=== PATIENT | male | born 1960 | race Caucasian/White ===

== ENCOUNTER 2020-03-10 09:24 | Observation (INO) | payer OTHER ==
[2020-03-10] VITALS (18 sets, daily range): BP systolic 121–150; BP diastolic 58–919
[~2020-03-10] VITALS: Ht 177.8 cm; Wt 72.6 kg
--- NOTE | ~2020-03-10 | H ---
[address] [address] HISTORY AND PHYSICAL Name: CYNTHIA PARTIDA Room: [address] Jm M.RYadira#: [id number] Admission: 03/10/20 Attend Phys: Gilbert Horton MD, F Discharge: 03/11/20 Date of : 62 Report #: [id number] THIS REPORT FOR: //name// cc: Keyonna Faulkner MD, Elizabeth MD ~ Please refer to the History and Physical performed in the physician's office. By: [facility] Staff [facility] /[facility]
[~2020-03-10 09:24] MED LIST: ASA81BEC PO; FISH OIL 1,0001 EAC9 PO; LIPITOR40 MG PO; OMEPRAZOLE 20 M20 M1 PO; SUPER THERAVIT1 EACH PO
[2020-03-10 10:05] LABS: HEMATOCRIT 43.3 % (42.0-52.0); HEMOGLOBIN 15.7 gm/dL (14.0-18.0); MCH 32.4 pg (26.0-34.0); MCHC 36.3 g/dL (28.0-37.0); MCV 89.1 fL (80.0-100.0); MPV 8.6 fl. (7.2-11.1); RBC 4.86 mil/uL (4.50-6.00); RDW-CV 13.8 % (10.5-14.5); WBC 7.4 thou/uL (4.0-11.0)
[2020-03-10 10:38] LABS: ANION GAP 8 mmol/L (7-16); BUN 16 mg/dL (7-18); CALCIUM 8.2 mg/dL (8.5-10.1); CHLORIDE 106 mmol/L (98-107); CO2 28 mmol/L (21-32); GLUCOSE 97 mg/dL (70-99); POTASSIUM 4.2 mmol/L (3.5-5.1); SODIUM 142 mmol/L (136-145)
[2020-03-10 10:43] LABS: ALBUMIN 3.7 g/dL (3.4-5.0); ALKALINE PHOSPHATASE 40 U/L (46-116); CHOLESTEROL 104 mg/dL (<200); HDL CHOLESTEROL 52 mg/dL (>40); LDL CHOLESTEROL 34 mg/dL (<100); SGOT 33 U/L (15-37); SGPT 58 U/L (30-65); TOTAL BILIRUBIN 0.6 mg/dL (<0.1-1.0); TOTAL PROTEIN 6.7 g/dL (6.4-8.2); TRIGLYCERIDE 93 mg/dL (<150); VLDL 19 mg/dL (<40)
[2020-03-10 10:44] LABS: SERUM ASSESSMENT Clear
[2020-03-10 10:52] LABS: APTT 23.3 Seconds (25.0-31.3); PROTIME 10.7 Seconds (9.20-11.50)
--- NOTE | 2020-03-10 17:40 | EKG ---
[place] [address] ELECTROCARDIOGRAM REPORT Name: CYNTHIA PARTIDA Room: [address]R.#: [id number] Admission: 03/10/20 Attend Phys: Gilbert Horton MD Discharge: Date of : 62 Date of Service: 03/10/20 1031 Report #: [id number] THIS REPORT FOR: //name// [facility] Test Date: 2020-03-10 Test Time: 10:31:36 Pat Name: CYNTHIA PARTIDA Department: Room: [facility] Gender: M Gate Supervisor: : 1960 Requested By: Gilbert Horton Order Number: [id number] David MD: Gilbert Horton Measurements Intervals [place] Rate: 59 P: 257 TX: 120 QRS: 59 QRSD: 86 T: 54 QT: 393 QTc: 390 Interpretive Statements Ectopic atrial rhythm Borderline low voltage, extremity leads Borderline ST elevation, early repolarization No previous ECG available for comparison Electronically Signed On 03-10-2020 17:39:59 CDT by Gilbert Horton [email or web address] <ELECTRONICALLY SIGNED> By: Gilbert Horton MD, [facility] 03/10/20 1739 1031 1031 Gilbert Horton MD, [facility] /EPI
--- NOTE | 2020-03-10 17:43 | EKG ---
[place] [address] ELECTROCARDIOGRAM REPORT Name: CYNTHIA PARTIDA Room: [address]R.#: [id number] Admission: 03/10/20 Attend Phys: Gilbert Horton MD Discharge: Date of : 62 Date of Service: 03/10/20 1603 Report #: [id number] THIS REPORT FOR: //name// [facility] Test Date: 2020-03-10 Test Time: 16:03:15 Pat Name: CYNTHIA PARTIDA Department: Room: [facility] Gender: M Maintenance Fitter: TPARKS : 1960 Requested By: Gilbert Horton Order Number: [id number] David MD: Gilbert Horton Measurements Intervals [place] Rate: 66 P: 36 UT: 168 QRS: 61 QRSD: 91 T: 55 QT: 387 QTc: 406 Interpretive Statements Sinus rhythm Baseline wander in lead(s) V4 Compared to ECG 03/10/2020 10:31:36 Ectopic atrial rhythm no longer present Electronically Signed On 03-10-2020 17:43:42 CDT by Gilbert Horton [email or web address] <ELECTRONICALLY SIGNED> By: Gilbert Horton MD, [facility] 03/10/20 1743 1603 1603 Gilbert Horton MD, [facility] /EPI
--- NOTE | 2020-03-10 19:14 | CARD ---
[address] [address] CARDIAC CATH REPORT Name: CYNTHIA PARTIDA Leonard Room: [address] M.RYadira#: [id number] Admission: 03/10/20 Attend Phys: Gilbert Horton MD, F Discharge: Date of : 62 Report #: [id number] THIS REPORT FOR: //name// cc: Keyonna Faulkner MD, Elizabeth MD ~ APPROVED REPORT Study performed: 03/10/2020 10:42:34 Patient Details Patient Status: Out-Patient Room #: The patient is a 59 year-old male Event Personnel Gilbert Horton Neonatal Doctor, Shalini Salter RN Volleyball Assembler, Saman Arguello INDUSTRIAL TRUCK MECHANIC Monitor, Alanna Billy RTR Scrub Procedures Performed Left Heart Cath w/or w/o Coronaries [id number] [facility] Place w/wo Plasty Single CIRC [id number] Indication Positive stress test, Chest pain Risk Factors Hypercholesterolemia, Coronary Artery Disease Admission/Lab Medications/Medications given during procedure Glycoprotein IllbIlla Inhibitors, Heparin Unfract. Procedure Narrative The patient was brought electively to the Cardiac Catheterization Laboratory and was prepped and draped in a sterile manner. The right wrist was infiltrated with 2% Lidocaine subcutaneous anesthesia. A Slender Glidesheath sheath was inserted into the RRA. Coronary angiography was performed using coronary diagnostic catheters. The right coronary system was accessed and visualized with a AR1 MOD catheter. The left coronary system was accessed and visualized with a JL3.5 catheter. The left ventricle was accessed and visualized with a Pig Tail catheter. Left ventriculogram was performed in PEDRAZA projection. Closure device was deployed with a 6 Fr vascband. The patient tolerated the procedure well and there were no complications associated with the procedure. [place] [address] CARDIAC CATH REPORT Name: AMYMARYAMCYNTHIA Leonard Room: [address] M.R.#: [id number] Admission: 03/10/20 Attend Phys: Gilbert Horton MD, F Discharge: Date of : 62 Report #: [id number] Intraoperative Conscious Sedation Sedation start time: 1346 Case end Time: 1435 Fluoro Time: 7.5 minutes Dose: DAP 94795 cGycm2 1031 mGy Contrast Type and Amount: Visipaque 170 ml Coronary Angiography The patient's coronary anatomy is right dominant. [place] Artery Percent Stenosis Left Main: 0 % Prox LAD: 0 % Mid/Distal LAD: 40 % Circumflex: 70 % RCA: 0 % Ramus: % Left Ventriculography The left ventricle is normal in size with normal contractility. The left ventricular ejection fraction is estimated to be 60-65%. Left ventricular wall motion abnormalities are not present. There is no mitral insufficiency. Hemodynamics The aortic pressure is 135/72 mmHg with a mean of 44 mmHg. The left ventricular pressure is 141/10 mmHg with a mean of mmHg. The left ventricular end diastolic pressure is 14 mmHg. There was no gradient across the aortic valve upon pullback. Pullback from the left ventricle to the aorta revealed no gradient across the aortic valve. PCI Technique Lesion Anticoagulation was achieved with Heparin. bolus of iv aggrastat given Percutaneous coronary intervention was performed on the mid circumflex artery segment. The lesion stenosis prior to intervention was 70% with MISSAEL 3 flow. A XB 3.5 Guide Catheter was used to engage the ostium. A BMW Interventional Guidewire was used to cross the lesion. STENT DEPLOYMENT A drug-eluting stent Oynx was inserted and inflated up to 9.00atm for 15seconds. Repeat angiography revealed the following post-stent deployment results: 0% stenosis. Additional Inflation: 13.00atm for 18seconds. Additional Inflation: 14.00atm for 17seconds. Final angiography reveals 0 % stenosis with MISSAEL 3 [place] [address] CARDIAC CATH REPORT Name: CYNTHIA PARTIDA Room: [address] M.R.#: [id number] Admission: 03/10/20 Attend Phys: Gilbert Horton MD, F Discharge: Date of : 62 Report #: [id number] Conclusion 1. 70% stenosis noted of the mid circumflex artery after the takeoff of the 2nd marginal artery. 2. LVEF 60-65% 3. successful placement of a drug eluting stent in the mid circumflex artery. Recommendations Cardiac Rehabilitation Referral Aggressive Medical Therapy Medications Administered Prasugrel <ELECTRONICALLY SIGNED> By: Gilbert Horton MD, [facility] 03/10/201913 13 mariel Horton MD, [facility] /INF
[2020-03-11] VITALS: BP 118/72
[2020-03-11 04:00] VITALS: BP 104/69
[2020-03-11 04:37] LABS: HEMATOCRIT 39.7 % (42.0-52.0); HEMOGLOBIN 14.3 gm/dL (14.0-18.0); MCH 31.9 pg (26.0-34.0); MCHC 36.1 g/dL (28.0-37.0); MCV 88.4 fL (80.0-100.0); MPV 8.1 fl. (7.2-11.1); RBC 4.49 mil/uL (4.50-6.00); RDW-CV 13.3 % (10.5-14.5); WBC 8.7 thou/uL (4.0-11.0)
[2020-03-11 04:51] LABS: CALCIUM 7.8 mg/dL (8.5-10.1); POTASSIUM 3.9 mmol/L (3.5-5.1); TROPONIN-I LEVEL 0.12 ng/mL (<0.06)
[2020-03-11 08:00] VITALS: BP 121/72
[2020-03-11 10:21] VITALS: BP 148/80
[2020-03-11 12:03] VITALS: BP 119/77
--- NOTE | 2020-03-11 13:06 | EKG ---
[place] [address] ELECTROCARDIOGRAM REPORT Name: CYNTHIA PARTIDA Room: [address] M.R.#: [id number] Admission: 03/10/20 Attend Phys: Gilbert Horton MD Discharge: Date of : 62 Date of Service: 03/11/20 0353 Report #: [id number] THIS REPORT FOR: //name// [facility] Test Date: 2020-03-11 Test Time: 03:53:17 Pat Name: CYNTHIA PARTIDA Department: Room: [address] Gender: M At Risk Specialist: JY : 1960 Requested By: Gilbert Horton Order Number: [id number] Reading MD: Tino Jarvis Measurements Intervals [place] Rate: 61 P: 23 MD: 154 QRS: 53 QRSD: 87 T: 56 QT: 392 QTc: 395 Interpretive Statements Sinus rhythm Borderline low voltage, extremity leads Compared to ECG 03/10/2020 16:03:15 No significant changes Electronically Signed On 03-11-2020 13:06:20 CDT by Tino Jarvis [email or web address] <ELECTRONICALLY SIGNED> By: Tino Jarvis MD, [facility] 03/11/20 1306 0353 0353 Tino Jarvis MD, [facility] /EPI
--- NOTE | 2020-03-11 14:32 | D ---
[address] [address] DISCHARGE SUMMARY Name: CYNTHIA PARTIDA Room: [address] M.R.#: [id number] Admission: 03/10/20 Attend Phys: Gilbert Horton MD, F Discharge: Date of : 62 Report #: [id number] THIS REPORT FOR: //name// cc: Keyonna Faulkner MD, Elizabeth MD ~ THIS REPORT FOR: //name// CC: Gilbert Johnson MD DATE OF SERVICE: 03/11/2020 DISCHARGE DIAGNOSES: 1. Crescendo angina. 2. Abnormal stress test. 3. Hyperlipidemia. 4. Coronary artery disease. CONSULTANTS: None. PROCEDURES: Left heart catheterization with placement of a single drug-eluting stent in the circumflex artery via the radial approach. PRIMARY CARE PHYSICIAN: Keyonna Johnson MD HISTORY OF PRESENT ILLNESS: The patient is a 59-year-old white male who was brought to the outpatient department to undergo cardiac catheterization. The patient apparently had coronary artery calcium scoring a year ago and his score was only 4.3 consistent with minimal coronary artery calcification. However, recently, he noticed when he exerts himself, he develops some burning in his chest. There is no radiation of the pain. He does get short of breath when he exerts himself. After one episode, he went to [facility] in [facility] and was admitted overnight. He was discharged the following day. I saw him in the Cardiology Clinic on 02/17. I recommended a stress echocardiogram that was performed in my office on 02/25. At that time, he did have some chest burning. He was noted to have ischemic ST segment changes. Ejection fraction was normal. There appeared to be no wall motion abnormalities with exercise. However, due to symptoms and abnormal ECG, I recommended cardiac catheterization. This was performed yesterday from the right radial artery. Results showed normal left ventricular function with an ejection fraction of 60%. There was no significant disease in the LAD or right coronary artery. However, there was a discrete 70% eccentric narrowing in the mid circumflex artery. He was then given heparin and Aggrastat. I placed a single drug-eluting stent in the circumflex artery. He tolerated the procedure well. He was loaded with Effient 60 mg. He did have some chest burning after the procedure and relieved [place] [address] DISCHARGE SUMMARY Name: CYNTHIA PARTIDA Room: [address]#: [id number] Admission: 03/10/20 Attend Phys: Gilbert Horton MD, F Discharge: Date of : 62 Report #: [id number] discharge, he was ambulating and had no further complaints. Followup ECG showed sinus rhythm with no significant ST or T-wave change. HOSPITAL COURSE: Laboratory the next day included a creatinine of 1.0. Troponin was only 0.12. His cholesterol 104, triglycerides 93, HDL 52, LDL 34. His hemoglobin 14.3. The results of the hospitalization were discussed with the patient. He was felt to have single vessel coronary artery disease, treated with a drug-eluting stent. He was felt to have a good prognosis from a cardiac standpoint. He was discharged to continue his home medications include aspirin 81 mg a day, Lipitor 40 mg a day. He was started on Effient 10 mg a day, which I would take for 1 year. He was given prescription for nitroglycerin to take as needed for chest pain. He was discharged to return to the care of Dr. Keyonna ruiz for routine medical care. He is scheduled to return to see me in the Cardiology Clinic in 1 month for followup. He was to contact my office if he had recurrent chest pain, shortness of breath or bleeding. He was given a prescription for nitroglycerin to take as needed for chest pain. <ELECTRONICALLY SIGNED> By: Gilbert Horton MD, [facility] 03/11/20 1432 1253 1313David Slade Horton MD, FACC /nt
[2020-03-11] MEDS ORDERED: EFFIENT10 MG PO (14:46)
[2020-03-11] MEDS ORDERED: TYLENOL325 M1 PO (14:51)
[2020-03-11] MEDS ORDERED: NITROGLYCERIN0.4 MG SUBLING (14:52)
[2020-03-11 14:53] VITALS: BP 148/80
== END 2020-03-11 15:00 | disposition home or self-care (01) ==
LOC: M.CL 09:24 → M.TBA-CV 14:38 → M.2W 14:38
PROVIDERS: ADMIT Internal Medicine Cardiovascular Disease; ATTEND Internal Medicine Cardiovascular Disease
DX: I25.118 Atherosclerotic heart disease of native coronary artery with other forms of angina pectoris (principal); E78.5 Hyperlipidemia, unspecified; F41.9 Anxiety disorder, unspecified; E66.3 Overweight; Z79.82 Long term (current) use of aspirin; Z79.899 Other long term (current) drug therapy; Z20.828 Contact with and (suspected) exposure to other viral communicable diseases; Z68.23 Body mass index [BMI] 23.0-23.9, adult

== ENCOUNTER 2020-03-13 13:34 | Inpatient (IN) | payer OTHER ==
[~2020-03-13] VITALS: Ht 167.6 cm; Wt 73.0 kg
--- NOTE | ~2020-03-13 | CON ---
[address] [address] CONSULTATION Name: HELGACYNTHIA Leonard Room: [address] IN M.R.#: [id number] Admission: 03/13/20 Attend Phys: Cathy Flores Discharge: Date of : 62 Report #: [id number] THIS REPORT FOR: //name// cc: Keyonna Faulkner MD, Elizabeth MD ~ THIS REPORT FOR: //name// CC: Keyonna Winchester CARDIOLOGY CONSULTATION HISTORY OF PRESENT ILLNESS: I was asked by Dr. Winchester to see this 59-year-old white male in cardiology consultation for evaluation and treatment of chest pain. This man has a history of coronary artery disease. He had a stent in his circumflex done by Dr. Horton on 03/10/2020. He had presented at that time with typical angina. It was exertional. It was substernal. It was a burning. It was a 5 on a scale of 10. It went away with rest. His pain that he presented with at this time was more towards the right side of the chest but some substernal. He described it as a tightness or a dull ache. It was continuous, it was not related to exertion. It lasted for 2 days and finally went away last night after he took some omeprazole before he came to the Emergency Room. He described as feeling like he was overwhelmed. He said it was like indigestion. Tums seemed to help a little bit. Nitroglycerin seemed to help a little bit. He has not had it since yesterday evening that is since he came in the hospital. It was a 3 on a scale of 10. It was somewhat different than his anginal chest pain. This man has hyperlipidemia as a risk factor. He does not smoke. He does not have diabetes. He does not have essential hypertension. I do not believe he has a family history of coronary artery disease. PAST MEDICAL HISTORY: Fairly unremarkable as well. He does seem to have a history of indigestion. He does take Prilosec p.r.n. ALLERGIES: He has no known allergies. HOME MEDICATIONS: P.r.n. Tylenol, aspirin 81 mg daily, atorvastatin 40 mg daily, multivitamin with minerals daily, p.r.n. nitroglycerin, fish oil 1000 mg daily, omeprazole 20 mg daily p.r.n. and Effient 10 mg daily. Note, this man did have a skin rash when he got home from the hospital almost immediately. It was diffuse all over his trunk. It appeared to be macular and papular. He started taking Benadryl and the rash is completely resolved. It has not come back. It was never particularly pruritic. It is not clear to me that this rash was clearly caused by Effient. It may have been caused by something else, he got in the hospital. REVIEW OF SYSTEMS: Unremarkable except as per the history of present illness [address] [address] CONSULTATION Name: CYNTHIA PARTIDA Room: [address] IN [facility]#: [id number] Admission: 03/13/20 Attend Phys: Cathy Flores Discharge: Date of : 62 Report #: [id number] and past medical history. Please see our review of system form for details and negatives in review of systems. SOCIAL HISTORY: He is , does not smoke, drink or use illegal drugs. FAMILY HISTORY: Unremarkable. PHYSICAL EXAMINATION: GENERAL: He presents as a well-developed, well-nourished white male in no acute distress. VITAL SIGNS: Pulse is 64 and regular, blood pressure is 100/59, respirations 18 and regular, temperature is 98 degrees. HEENT: His head was atraumatic. Eyes clear. NECK: Supple. There is no jugular venous distention or hepatojugular reflux. Thyroid is not enlarged. There is no adenopathy. SKIN: Warm and dry. Mucous membranes are moist. LUNGS: Clear to auscultation and percussion. HEART: Revealed normal first and second heart sound. There is soft S4. There is no S3. There are no murmurs, rubs, thrills, heaves or gallops. PMI is nondisplaced. ABDOMEN: Soft, flat and nontender. No palpable masses, no organomegaly. EXTREMITIES: Reveal no cyanosis, clubbing or edema. NEUROLOGIC: The patient mentated normally, talked normally, moved all extremities normally. LABORATORY DATA: His EKG is unchanged from his prior EKGs and is unchanged again today. It shows an ectopic atrial rhythm, which he appears to have chronically and there are minor nonspecific T-wave flattening, but nothing diagnostic. Troponins are negative x 4, I believe. Chest x-ray is unremarkable, no acute process was seen. IMPRESSION: 1. Chest pain of uncertain cause, possible coronary pain. 2. Coronary artery disease. 3. Status post coronary artery stent. 4. Skin rash that seems to have resolved. 5. Hypercholesterolemia. RECOMMENDATION: He should have cardiac catheterization and coronary angiography to be sure of the status of [place] [address] CONSULTATION Name: CYNTHIA PARTIDA Room: [address]#: [id number] Admission: 03/13/20 Attend Phys: Cathy Flores Discharge: Date of : 62 Report #: [id number] Thank you very much for asking me to see the patient. If there are any questions, please feel free to contact me. By: 1230 1301F. Scott Seals MD, FACC /nt
[~2020-03-13 13:34] MED LIST changes: +EFFIENT10 MG PO; +NITROGLYCERIN0.4 MG SUBLING; +TYLENOL325 M1 PO
[2020-03-13 13:46] VITALS: BP 112/73
[2020-03-13 14:20] LABS: ABSOLUTE EOSINOPHILS 0.2 thou/uL (0.0-0.7); ABSOLUTE MONOCYTES 0.5 thou/uL (0.0-1.2); ABSOLUTE NEUTROPHILS 5.3 thou/uL (1.6-8.1); BASOPHILS 0.6 %; EOSINOPHILS 2.3 %; HEMATOCRIT 46.3 % (42.0-52.0); LYMPHOCYTES 25.2 %; MCH 32.2 pg (26.0-34.0); MCHC 36.6 g/dL (28.0-37.0); MCV 88.2 fL (80.0-100.0); MONOCYTES 6.7 %; MPV 7.8 fl. (7.2-11.1); NUCLEATED RBCS 0 /100WBC; PLATELET COUNT* 205 thou/uL (150-400); POLYS 65.2 %; RBC 5.25 mil/uL (4.50-6.00); WBC 8.1 thou/uL (4.0-11.0)
[2020-03-13 14:28] LABS: HEMOGLOBIN 16.9 gm/dL (14.0-18.0)
[2020-03-13 14:34] LABS: CALCIUM 8.7 mg/dL (8.5-10.1); CREATININE 1.1 mg/dL (0.6-1.3); POTASSIUM 3.9 mmol/L (3.5-5.1)
[2020-03-13 14:47] LABS: ALBUMIN 4.1 g/dL (3.4-5.0); CK-MB MASS 0.5 ng/mL (<0.5-3.6); MAGNESIUM 2.1 mg/dL (1.8-2.4); TOTAL BILIRUBIN 1.1 mg/dL (<0.1-1.0); TOTAL PROTEIN 7.7 g/dL (6.4-8.2)
[2020-03-13 14:48] LABS: PROTIME 10.2 Seconds (9.20-11.50)
[2020-03-13 15:30] VITALS: BP 130/75
[2020-03-13 15:35] VITALS: BP 125/72
[2020-03-13] MEDS ORDERED: PRILOSEC OTC20 MG PO (16:40)
[2020-03-13 17:08] LABS: CALCIUM 8.9 mg/dL (8.5-10.1); CREATININE 1.2 mg/dL (0.6-1.3); POTASSIUM 4.2 mmol/L (3.5-5.1)
--- NOTE | 2020-03-13 18:30 | NUR ---
RECEIVED REPORT FROM ER NURSE PHILLIP. PT ARRIVED TO TELE FLOOR AROUND 1535. PT A&O X4. ADMISSION ASSESSMENT, VITALS, EDUCATION AND HISTORY COMPLETED CHARTED. WAGON DRIVER PLACED. MEDS PER EMAR. PT DENIES PAIN OR DISCOMFOT AT THIS TIME. TOLERATING RA. APPETITE GOOD. NPO AFTER MIDNIGHT FOR CARDIOLOGY CONSULT. PT CURRENTLY WATCHING TV IN BED. CALL LIGHT IS WITHN REACH. HOURLY ROUNDING PERFORMED. LOW FALL RISKP RECAUTIONS IN PLACE.
[2020-03-13 19:40] VITALS: BP 147/96
[2020-03-14] VITALS: BP 95/51
[2020-03-14 04:00] VITALS: BP 100/59
--- NOTE | 2020-03-14 05:48 | NUR ---
RECEIVED REPORT AND ASSUMED CARE OF PATIENT AT 1900. FULL ASSESSMENT COMPLETED CHARTED. BED LOCKED AND IN LOW POSITION, CALL LIGHT AND PERSONAL ITEMS IN REACH. PT A&OX4, SPO2 98 ON RA, SR/ST ON MONITOR, ACCU CHECK, UP AD DAVE, RIGHT SIDE RASH PRESENT, DENIES PAIN, DENIES CHEST TIGHTNESS.
[2020-03-14 05:53] LABS: ABSOLUTE EOSINOPHILS 0.2 thou/uL (0.0-0.7); ABSOLUTE LYMPHOCYTES 2.2 thou/uL (0.8-5.3); ABSOLUTE MONOCYTES 0.6 thou/uL (0.0-1.2); ABSOLUTE NEUTROPHILS 4.4 thou/uL (1.6-8.1); BASOPHILS 0.3 %; EOSINOPHILS 2.6 %; HEMATOCRIT 42.8 % (42.0-52.0); HEMOGLOBIN 15.1 gm/dL (14.0-18.0); LYMPHOCYTES 30.3 %; MCH 31.5 pg (26.0-34.0); MCHC 35.3 g/dL (28.0-37.0); MCV 89.4 fL (80.0-100.0); MONOCYTES 7.6 %; MPV 8.2 fl. (7.2-11.1); NUCLEATED RBCS 0 /100WBC; PLATELET COUNT* 180 thou/uL (150-400); POLYS 59.2 %; RBC 4.79 mil/uL (4.50-6.00); RDW-CV 13.9 % (10.5-14.5); WBC 7.4 thou/uL (4.0-11.0)
[2020-03-14 06:09] LABS: ALBUMIN 3.6 g/dL (3.4-5.0); CALCIUM 8.4 mg/dL (8.5-10.1); CREATININE 1.3 mg/dL (0.6-1.3); TOTAL BILIRUBIN 0.7 mg/dL (<0.1-1.0); TOTAL PROTEIN 6.6 g/dL (6.4-8.2)
--- NOTE | 2020-03-14 14:18 | EKG ---
[place] [address] ELECTROCARDIOGRAM REPORT Name: CYNTHIA PARTIDA Room: [address] ADM IN .R.#: [id number] Admission: 03/13/20 Attend Phys: Chau Winchester Discharge: Date of : 62 Date of Service: 03/13/20 1347 Report #: [id number] THIS REPORT FOR: //name// [facility] ED Test Date: 2020-03-13 Test Time: 13:47:59 Pat Name: CYNTHIA PARTIDA Department: Room: [facility] Gender: M Cell Room Supervisor: CCD : 1960 Requested By: Rico Paris Order Number: [id number] MD: Scott Seals Measurements Intervals [place] Rate: 72 P: -87 OK: 115 QRS: 62 QRSD: 82 T: QT: 376 QTc: 412 Interpretive Statements Ectopic atrial rhythm Borderline short OK interval Borderline T wave abnormalities Baseline wander in lead(s) III Compared to ECG 03/11/2020 03:53:17 Ectopic atrial rhythm now present T-wave abnormality now present Sinus rhythm no longer present Electronically Signed On 03-14-2020 14:18:12 CDT by Scott Seals [email or web address] <ELECTRONICALLY SIGNED> By: Noel Seals MD, [facility] 03/14/20 1418 1347 1347 Noel Seals MD, [facility] /EPI
[2020-03-14 15:12] VITALS: BP 118/69
[2020-03-14 18:35] VITALS: BP 114/66
--- NOTE | 2020-03-14 19:01 | NUR ---
PATIENT A&OX4. VSS. PATIENT DAUGHTER IN ROOM WITH PATIENT. RASH ON TRUNK HAS DISAPPEARED BUT PATIENT STILL ITCHY. PATIENT TO BE NPO AFTER MIDNIGHT FOR CATH TOMORROW. PATIENT HAS NO C/O PAIN. PATIENT SHOWERED TODAY. BED IN LOWEST LOCKED POSITION. CALL LIGHT IN REACH.
[2020-03-14 20:00] VITALS: BP 109/68
[2020-03-15] VITALS (14 sets, daily range): BP systolic 95–136; BP diastolic 54–87
--- NOTE | 2020-03-15 05:27 | NUR ---
ASSUMED CARE OF PT AFTER REPORT AT 1930. PT A&OX4. VSS. PHYSICAL ASSESSMENT COMPLETED AND CHARTED. PT ON RA. PT TRACING SR ON TELE. PT UPADLIB. PT DENIES ANY CHEST PAIN. INSTRUCTED ON NPO POST MIDNIGHT FOR CARDIAC CATH TODAY. COMMUNICATES UNDERSTANDING. CALL PRECAUTIONS IN PLACE.
--- NOTE | 2020-03-15 13:14 | NUR ---
Pt recently dc last week post cath and stent placement. Pt stated that on Sunday and Sunday, started having CP and presented back to the hospital. Plan cath today. Pt resides at home with . Independent and active. No DME. No hx of HH or SNF. Goal is home at dc, anticipate dc tomorrow.
--- NOTE | 2020-03-15 17:40 | EKG ---
[place] [address] ELECTROCARDIOGRAM REPORT Name: HELGACYNTHIA Leonard Room: [address] ADM IN .R.#: [id number] Admission: 03/13/20 Attend Phys: Chau Winchester Discharge: Date of : 62 Date of Service: 03/14/20 1132 Report #: [id number] THIS REPORT FOR: //name// [facility] Test Date: 2020-03-14 Test Time: 11:32:50 Pat Name: CYNTHIA PARTIDA Department: Room: [address] Gender: M Fruit Room Hand: UNKNOWN : 1960 Requested By: Chau Winchester Order Number: [id number] David MD: Tino Jarvis Measurements Intervals [place] Rate: 67 P: 249 CT: 119 QRS: 60 QRSD: 84 T: 43 QT: 380 QTc: 401 Interpretive Statements Sinus or ectopic atrial rhythm Borderline short CT interval Compared to ECG 03/13/2020 13:47:59 T-wave abnormality no longer present Electronically Signed On 03-15-2020 17:40:04 CDT by Tino Jarvis [email or web address] <ELECTRONICALLY SIGNED> By: Tino Jarvis MD, FACC 03/15/20 1740 1132 1132 Tino Jarvis MD, FAC /EPI
--- NOTE | 2020-03-15 20:31 | NUR ---
ASSUMED CARE OF PT APPROX 0730. PT HAD HEART CATH THIS AFTERNOON, PT COMPLAINT OF CHEST PAIN. PHYSICAN CONTACTED ORDERS RECIEVED. PT HAD RELIEF FROM MEDICATION. PHYSICAN FOLLOWED UP ON PT TO SEE IF PAIN WAS RELIEVED, PTS SYMPTOMS HAD IMPROVED. HOURLY ROUNDED, TELE MONITORING
[2020-03-16] VITALS: BP 102/59
[2020-03-16 04:00] VITALS: BP 116/72
[2020-03-16 05:00] LABS: HEMOGLOBIN 13.6 gm/dL (14.0-18.0); MCHC 36.8 g/dL (28.0-37.0); MCV 87.1 fL (80.0-100.0); MPV 8.1 fl. (7.2-11.1); RBC 4.25 mil/uL (4.50-6.00); RDW-CV 13.7 % (10.5-14.5); WBC 5.9 thou/uL (4.0-11.0)
[2020-03-16 05:17] LABS: ALBUMIN 3.1 g/dL (3.4-5.0); CALCIUM 7.6 mg/dL (8.5-10.1); POTASSIUM 3.7 mmol/L (3.5-5.1); TOTAL BILIRUBIN 0.5 mg/dL (<0.1-1.0); TOTAL PROTEIN 6.2 g/dL (6.4-8.2); TROPONIN-I LEVEL 0.39 ng/mL (<0.06)
--- NOTE | 2020-03-16 05:49 | NUR ---
ASSUMED CARE OF PT AFTER REPORT AT 1930. PT A&OX4. VSS. PHYSICAL ASSESSMENT COMPLETED AND CHARTED. PT ON RA. PT TRACING SR ON TELE. PT COMPLAINED OF DULL ACHY CHEST PAIN-MED GIVEN PER MAR. POST CATH SITE TO RIGHT GROIN CLEAN, DRY& INTACT. PT ABLE TO SLEEP WELL ON BED. CALL LIGHT WITHIN REACH.
[2020-03-16 08:00] VITALS: BP 105/61
[2020-03-16 10:42] VITALS: BP 105/61
--- NOTE | 2020-03-16 11:09 | NUR ---
Pt had cath yesterday. Plan to dc to home today. No CM needs.
[2020-03-16 11:53] VITALS: BP 113/60
[2020-03-16 12:00] VITALS: BP 114/74
--- NOTE | 2020-03-16 16:03 | EKG ---
[place] [address] ELECTROCARDIOGRAM REPORT Name: CYNTHIA PARTIDA Room: [address] ADM IN .R.#: [id number] Admission: 03/13/20 Attend Phys: Chau Winchester Discharge: Date of : 62 Date of Service: 03/15/20 1708 Report #: [id number] THIS REPORT FOR: //name// [facility] Test Date: 2020-03-15 Test Time: 17:08:47 Pat Name: CYNTHIA PARTIDA Department: Room: [address] Gender: M Professor Of Management: : 1960 Requested By: Chau Winchester Order Number: [id number] David MD: Alexander Montgomery Measurements Intervals [place] Rate: 67 P: 25 MA: 164 QRS: 53 QRSD: 88 T: 25 QT: 383 QTc: 405 Interpretive Statements Sinus rhythm Borderline low voltage, extremity leads Abnormal R-wave progression, late transition Baseline wander in lead(s) V2 Compared to ECG 03/14/2020 11:32:50 Ectopic atrial rhythm no longer present Electronically Signed On 03-16-2020 16:03:14 CDT by Alexander Montgomery [email or web address] <ELECTRONICALLY SIGNED> By: Alexander Montgomery MD, FAC 03/16/20 1603 1708 1708 Alexander Montgomery MD, FAC /EPI
--- NOTE | 2020-03-16 16:13 | EKG ---
[place] [address] ELECTROCARDIOGRAM REPORT Name: CYNTHIA PARTIDA Room: [address] ADM IN .R.#: [id number] Admission: 03/13/20 Attend Phys: Chau Winchester Discharge: Date of : 62 Date of Service: 03/16/20 0444 Report #: [id number] THIS REPORT FOR: //name// [facility] Test Date: 2020-03-16 Test Time: 04:44:20 Pat Name: CYNTHIA PARTIDA Department: Room: [address] Gender: M Rodeo Clown: KREED7 : 1960 Requested By: Alexander Montgomery Order Number: [id number] David MD: Alexander Montgomery Measurements Intervals [place] Rate: 63 P: 32 TN: 170 QRS: 60 QRSD: 95 T: 42 QT: 396 QTc: 406 Interpretive Statements Sinus rhythm Borderline low voltage, extremity leads Baseline wander in lead(s) V4 Compared to ECG 03/14/2020 11:32:50 Ectopic atrial rhythm no longer present Electronically Signed On 03-16-2020 16:13:39 CDT by Alexander Montgomery [email or web address] <ELECTRONICALLY SIGNED> By: Alexander Montgomery MD, [facility] 03/16/20 1613 0444 0444 Alexander Montgomery MD, [facility] /EPI
--- NOTE | 2020-03-17 16:39 | CARD ---
[address] [address] CARDIAC CATH REPORT Name: CYNTHIA PARTIDA Room: [address] IN [facility]#: [id number] Admission: 03/13/20 Attend Phys: Cathy Flores Discharge: 03/16/20 Date of : 62 Report #: [id number] THIS REPORT FOR: //name// cc: Keyonna Faulkner MD, Elizabeth MD ~ ADDENDUM APPROVED REPORT Study performed: 03/15/2020 14:23:35 Patient Details Patient Status: In-Patient Room #: The patient is a 59 year-old male Event Personnel Alexander Montgomery Pelt Shearer, Smaan Arguello DIDACTIC INSTRUCTOR Monitor, Angeline Arellano RN Rn Lactation, Johnson Santiago DIDACTIC INSTRUCTOR Scrub Procedures Performed Left Heart Cath w/or w/o Coronaries [id number] [facility] HIRAL Place w/wo Plasty Single LAD [id number] Indication Unstable angina Risk Factors Hypercholesterolemia Previous Procedures/Diagnoses Previous PCI Admission/Lab Medications/Medications given during procedure Angiomax IV 11 ml, Angiomax Drip IV 25.55 ml per hr, Effient PO 30 mg, Aspirin PO 162 mg Procedure Narrative The patient was brought electively to the Cardiac Catheterization Laboratory and was prepped and draped in a sterile manner. The right femoral was infiltrated with 2% Lidocaine subcutaneous anesthesia. A [place] 6 FR sheath was inserted into the right femoral artery. Coronary angiography was performed using coronary diagnostic catheters. The right coronary system was accessed and visualized with a JR4 catheter. The left coronary system was accessed and visualized with a JL 3.5 5fr catheter. The left ventricle was accessed and visualized with a Pigtail catheter. Left ventricular/Aortic Valve gradient assessed via catheter pullback. [place] [address] CARDIAC CATH REPORT Name: CYNTHIA PARTIDA Room: [address]#: [id number] Admission: 03/13/20 Attend Phys: Cathy Flores Discharge: 03/16/20 Date of : 62 Report #: [id number] angiogram was performed . Closure device was deployed with a 6 Fr Angioseal STS. The patient tolerated the procedure well and there were no complications associated with the procedure. There was no hematoma. Intraoperative Conscious Sedation Sedation start time: 1438 Case end Time: 1542 Fentanyl 75 mcg Versed 4 mg Fluoro Time: 14.7 minutes Dose: DAP 59110 cGycm2 1940 mGy Contrast Type and Amount: Visipaque 400 ml Diagnostic Cath Left Main 0% narrowing LAD Tandem 70 and 75% mid LAD stenosis Circumflex Nondominant vessel with a widely patent mid circumflex stent Right Coronary Large dominant vessel with 0% narrowing Left Ventriculography Left Ventriculography was not performed. Hemodynamics The aortic pressure is 89/49 mmHg with a mean of 67 mmHg. The left ventricular pressure is 101/2 mmHg with a mean of mmHg. The left ventricular end diastolic pressure is 11 mmHg. There was no gradient across the aortic valve upon pullback. PCI Technique Lesion Anticoagulation was achieved with Angiomax. Patient was preloaded with Angiomax IV 11 ml. Percutaneous coronary intervention was performed on the mid left anterior descending artery segment. The lesion stenosis prior to intervention was 75% with MISSAEL 3 flow. A 6FR XB LAD 3.0 100CM Guide Catheter was used to engage the Left main ostium. A BMW 190cm Interventional Guidewire was used to cross the lesion. STENT DEPLOYMENT A drug-eluting stent Princeton RX Stent 2.0X8mm was inserted and inflated up to 10.00atm for 11seconds. Additional Inflation: 14.00atm for 7seconds. Additional Inflation: 16atm for 6seconds. Additional inflation: 17 naila for 7 seconds. POST STENT DEPLOYMENT [place] [address] CARDIAC CATH REPORT Name: CYNTHIA PARTIDA Room: [address] IN ..#: [id number] Admission: 03/13/20 Attend Phys: Cathy Flores Discharge: 03/16/20 Date of : 62 Report #: [id number] A Balloon catheter NC Euphora 2.25x8 was inserted and inflated up to 12atm for 7seconds. Additional Inflation: 14atm for 8seconds. Final angiography reveals 0 % stenosis with MISSAEL 3 flow. PCI Technique Lesion 2 Percutaneous coronary intervention was performed on the mid left anterior descending artery segment. The lesion stenosis prior to intervention was 70% with MISSAEL 3 flow. Stent Deployment A drug-eluting stent Tuan RX Stent 2.5X8mm was inserted and inflated up to 8atm for 4seconds. Additional Inflation: 15atm for 11seconds. Additional Inflation: 17atm for 13seconds. Post Stent Deployment Balloon Dilation A Balloon catheter NC Trek RX 2.75 X 8 was inserted and inflated up to 14atm for 6seconds. Additional Inflation: 16atm for 7seconds. Additional Inflation: 18atm for 8seconds. Additional inflations: 20 naila for 7 seconds; 21 naila for 15 seconds. Final angiography reveals 10 % stenosis with MISSAEL 3 flow. Conclusion 1. Significant coronary artery disease characterized by the following: A tandem 70 and 75% mid LAD stenosis B widely patent stent in the midportion of the nondominant circumflex C normal left main and dominant right coronary arteries 2. Normal left-sided hemodynamic study 3. Successful PCI with deployment of sequential drug-eluting stents at the sites of 70 and 75% mid LAD stenosis with 10 and 0% residual narrowing and MISSAEL-3 flow to the distal vessel Recommendations Cardiac Risk Reduction Program Aggressive Medical [place] [address] CARDIAC CATH REPORT Name: CYNTHIA PARTIDA Room: [address]#: [id number] Admission: 03/13/20 Attend Phys: Cathy Flores Discharge: 03/16/20 Date of : 62 Report #: [id number] Aspirin (any) Prasugrel Diagnostic Cath Approved by: Alexander Montgomery MD Date/Time: 03/16/2020 13:22:18 <ELECTRONICALLY SIGNED> By: Alexander Montgomery MD, FACC 03/17/20 1639 1639 1639Alexander Montgomery MD, FACC /INF
== END 2020-03-16 13:00 | disposition home or self-care (01) | DRG 247 ==
LOC: M.ERS 13:34 → M.2W 14:48 → M.TBA-ER 14:48 → M.2W 15:42
PROVIDERS: Family Medicine; Internal Medicine; ADMIT Internal Medicine; ATTEND Internal Medicine
PROC: 4A023N7 Measurement of Cardiac Sampling and Pressure, Left Heart, Percutaneous Approach (ICD-10-PCS; principal; 2020-03-15)
PROC: B211YZZ Fluoroscopy of Multiple Coronary Arteries using Other Contrast (ICD-10-PCS; principal; 2020-03-15)
PROC: B41FYZZ Fluoroscopy of Right Lower Extremity Arteries using Other Contrast (ICD-10-PCS; principal; 2020-03-15)
PROC: 027035Z Dilation of Coronary Artery, One Artery with Two Drug-eluting Intraluminal Devices, Percutaneous Approach (ICD-10-PCS; principal; 2020-03-15)
DX: I25.10 Atherosclerotic heart disease of native coronary artery without angina pectoris (principal); I24.9 Acute ischemic heart disease, unspecified; E78.00 Pure hypercholesterolemia, unspecified; Z20.828 Contact with and (suspected) exposure to other viral communicable diseases; Z82.49 Family history of ischemic heart disease and other diseases of the circulatory system; Z95.5 Presence of coronary angioplasty implant and graft

== ENCOUNTER → 2020-05-20 | Outpatient (CLI) | payer OTHER ==
[~2020-05-20] MED LIST changes: +PRILOSEC OTC20 MG PO
--- NOTE | 2020-05-20 16:04 | CARDNUC ---
[place] [address] CARDIAC NUCLEAR IMAGING REPORT Name: HELGACYNTHIA Leonard Room: [facility]#: [id number] Admission: 05/20/20 Attend Phys: Tino Jarvis, Discharge: Date of : 62 Date of Service: 05/20/20 1603 Report #: [id number] THIS REPORT FOR: cc: Ce Phelps Christine L DO Liston, Michael J. MD [facility] ~ APPROVED REPORT Study performed: 05/20/2020 14:45:19 Exam: Nuclear Stress Test Indication: Chest pain, Dyspnea Patient Location: Out-Patient Stress Tech: Libra Torrez Stress Nurse: Fe Alfonso RN NM Tech:BELLE Quintana Ht: 5 ft 6 in Wt: 161 lbs BSA: 1.82 m2 BMI: 25.98 Medical History Medical History: CAD s/p stent, Hyperlipidemia Medications: asa 81, atorvastatin, ntg, brilinta Allergies: No known drug allergies Cardiac Risk Factors: Age, Hyperlipidemia Previous Cardiac Procedures: PCI Exercise History: Physically active Stress Test Details Stress Test: Exercise stress testing was performed using a Rogers protocol. HR Resting HR: 66 bpm Max Heart Rate (APMHR): 162 bpm Max HR Achieved: 162 bpm Target HR (85% APMHR): 137 bpm % of APMHR: 100 Recovery HR: 98 bpm HR response to stress: Normal HR response to stress BP Resting BP: 117/76 mmHg Max BP: 160/77 mmHg BP response to stress: Normal blood [place] [address] CARDIAC NUCLEAR IMAGING REPORT Name: CYNTHIA PARTIDA Room: [facility]#: [id number] Admission: 05/20/20 Attend Phys: Tino Jarvis, Discharge: Date of : 62 Date of Service: 05/20/20 1603 Report #: [id number] ECG Resting ECG: Sinus Rhythm Stress ECG: Sinus Tachycardia ST Change: None Arrhythmia: None Recovery ECG: Sinus Rhythm Recovery ST Change: None Recovery Arrhythmia: None Clinical Reason for Termination: Fatigue Exercise duration: 11 min 01 sec Exercise capacity: 13.47 METs Overall Exercise Capacity for Age: Superior Functional Aerobic Impairment 100% The patient tolerated standard Rogers protocol exercise without significant cardiac symptoms. Stress ECG Conclusion Baseline twelve-lead EKG shows sinus rhythm without significant ST segment or T wave abnormality. EKGs obtained during and post exercise show sinus rhythm and sinus tachycardia with no significant ST segment or T wave changes when compared to baseline. There were no stress-induced arrhythmias. NM EXAM: Myocardial Perfusion REST/STRESS Imaging Protocol: Rest Tc-99m/Stress Tc-99m 1 day Resting Data Rest SPECT myocardial perfusion imaging was performed in supine position 30 minutes following the intravenous injection of 10.8 mCi of Tc-99m Sestamibi. Time of rest injection: 1255 Date: 05/20/2020 The images were gated to evaluate regional wall motion and calculate left ventricular ejection fraction. Administration Route: IV Administration Site: Left AC Exercise Stress At peak stress, the patient was injected intravenously with 31.9mCi of Tc-99m Sestamibi. Time of stress injection: 1435 Date: 05/20/2020 Administration Route: IV Administration Site: Left AC Gated Stress SPECT was performed 30 [place] [address] CARDIAC NUCLEAR IMAGING REPORT Name: CYNTHIA PARTIDA Room: [facility]#: [id number] Admission: 05/20/20 Attend Phys: Tino Jarvis, Discharge: Date of : 62 Date of Service: 05/20/20 1603 Report #: [id number] The images were gated to evaluate regional wall motion and calculate left ventricular ejection fraction. Prone imaging was performed. Study Quality Study: Good Artifact: No artifact Study Data At rest, the left ventricular ejection fraction was 66%.. Post stress, the left ventricular ejection was 67%.. TID = 0.82. Perfusion Perfusion images obtained at rest and post exercise stress showed uniform uptake of the radioisotope throughout the myocardium. There were no defects to suggest infarct or ischemia. Wall Motion Normal left ventricular wall motion. Nuclear Conclusion ECG Findings: negative for ischemia Clinical Findings: negative for ischemia Nuclear Findings: negative for ischemia Exercise Capacity: normal Left Ventricular Function: normal Risk Study: low Perfusion images show no defect to suggest infarct or ischemia. Left ventricular systolic function is normal on gated studies. This is a low risk study. <Conclusion> Baseline twelve-lead EKG shows sinus rhythm without significant ST segment or T wave abnormality. EKGs obtained during and post exercise show sinus rhythm and sinus tachycardia with no significant ST segment or T wave changes when compared to baseline. There were no stress-induced arrhythmias. <ELECTRONICALLY SIGNED> By: Tino Jarvis MD, FACC 05/20/20 1603 1603 1603 Tino Jarvis MD, FACC /INF
== END ==
LOC: M.NUC 05-12 09:16
PROVIDERS: ATTEND Internal Medicine Cardiovascular Disease
DX: R00.0 Tachycardia, unspecified (principal); R07.9 Chest pain, unspecified; R06.00 Dyspnea, unspecified

== ENCOUNTER 2021-02-25 08:07 | Inpatient (IN) | payer OTHER ==
[2021-02-25] VITALS (16 sets, daily range): BP systolic 120–146; BP diastolic 54–89
[~2021-02-25] VITALS: Ht 167.6 cm; Wt 68.0 kg
--- NOTE | ~2021-02-25 | H ---
[address] [address] HISTORY AND PHYSICAL Name: CYNTHIA PARTIDA Room: [address] IN M.R.#: [id number] Admission: 02/25/21 Attend Phys: Alexander Montgomery MD, Discharge: 02/26/21 Date of : 62 Report #: [id number] THIS REPORT FOR: cc: Abbie Pack MD, Jennifer MD [facility],Medical Records Staff ~ Please refer to the History and Physical performed in the physician's office. By: [facility] /MED[place]
[~2021-02-25 08:07] MED LIST changes: +BRILINTA90 MG PO; +PROBIOTIC-10 11 EACH PO
[2021-02-25 08:47] LABS: HEMATOCRIT 39.2 % (42.0-52.0); HEMOGLOBIN 14.1 gm/dL (14.0-18.0); MCH 31.4 pg (26.0-34.0); MCHC 35.9 g/dL (28.0-37.0); MCV 87.3 fL (80.0-100.0); MPV 7.5 fl. (7.2-11.1); RBC 4.49 mil/uL (4.50-6.00); WBC 5.9 thou/uL (4.0-11.0)
[2021-02-25 08:56] LABS: ANION GAP 7 mmol/L (7-16); BUN 21 mg/dL (7-18); CALCIUM 8.2 mg/dL (8.5-10.1); CHLORIDE 106 mmol/L (98-107); CO2 29 mmol/L (21-32); CREATININE 1.1 mg/dL (0.6-1.3); GLUCOSE 104 mg/dL (70-99); SODIUM 142 mmol/L (136-145)
[2021-02-25 08:59] LABS: APTT 26.2 Seconds (25.0-31.3); PROTIME 10.9 Seconds (9.20-11.50)
[2021-02-25 09:00] LABS: ALBUMIN 3.9 g/dL (3.4-5.0); ALKALINE PHOSPHATASE 54 U/L (46-116); CHOLESTEROL 94 mg/dL (<200); HDL CHOLESTEROL 49 mg/dL (>40); LDL CHOLESTEROL 33 mg/dL (<100); SGOT 20 U/L (15-37); SGPT 38 U/L (30-65); TC:HDL 1.9 Ratio (Not establshd); TOTAL BILIRUBIN 0.7 mg/dL (<0.1-1.0); TOTAL PROTEIN 6.9 g/dL (6.4-8.2); TRIGLYCERIDE 62 mg/dL (<150); VLDL 12 mg/dL (<40)
[2021-02-25 09:01] LABS: SERUM ASSESSMENT Clear
[2021-02-25] MEDS ORDERED: BUPROPION HCL100 MG PO (09:03)
--- NOTE | 2021-02-25 09:47 | EKG ---
[place] [address] ELECTROCARDIOGRAM REPORT Name: CYNTHIA PARTIDA Room: [facility]#: [id number] Admission: 02/25/21 Attend Phys: Lachelle Zheng Discharge: Date of : 62 Date of Service: 02/25/21831 Report #: [id number] THIS REPORT FOR: //name// [facility] Test Date: 2021-02-25 Test Time: 08:32:10 Pat Name: CYNTHIA PARTIDA Department: Room: Gender: It Service Technician: WINSTON : 1960 Requested By: Alexander Montgomery Order Number: [id number] David MD: Alexander Montgomery Measurements Intervals [place] Rate: 61 P: 32 VT: 164 QRS: 51 QRSD: 90 T: 74 QT: 396 QTc: 399 Interpretive Statements Sinus rhythm Borderline low voltage, extremity leads Compared to ECG 03/16/2020 04:44:20 No significant changes Electronically Signed On 02-25-2021 9:46:29 CDT by Alexander Montgomery [email or web address] <ELECTRONICALLY SIGNED> By: Alexander Montgomery MD, [facility] 02/25/2146 1 Alexander Montgomery MD, [facility] /EPI
--- NOTE | 2021-02-25 14:37 | EKG ---
[place] [address] ELECTROCARDIOGRAM REPORT Name: CYNTHIA PARTIDA Room: [address] ADM IN M.R.#: [id number] Admission: 02/25/21 Attend Phys: Lachelle Zheng Discharge: Date of : 62 Date of Service: 02/25/21 1133 Report #: [id number] THIS REPORT FOR: //name// [facility] Test Date: 2021-02-25 Test Time: 11:33:27 Pat Name: CYNTHIA PARTIDA Department: Room: [facility] Gender: M Data Entry Manager: : 1960 Requested By: Alexander Montgomery Order Number: [id number] David MD: Alexander Montgomery Measurements Intervals [place] Rate: 69 P: 28 CT: 179 QRS: 56 QRSD: 96 T: 53 QT: 381 QTc: 408 Interpretive Statements Sinus rhythm Borderline low voltage, extremity leads Baseline wander in lead(s) V2 Compared to ECG 02/25/2021 08:32:10 No significant changes Electronically Signed On 02-25-2021 14:37:02 CDT by Alexander Montgomery [email or web address] <ELECTRONICALLY SIGNED> By: Alexander Montgomery MD, [facility] 02/25/21 1437 1133 1133 Alexander Montgomery MD, [facility] /EPI
[2021-02-26 01:20] VITALS: BP 121/66
[2021-02-26 04:34] LABS: HEMATOCRIT 40.1 % (42.0-52.0); HEMOGLOBIN 14.1 gm/dL (14.0-18.0); MCH 31.2 pg (26.0-34.0); MCHC 35.2 g/dL (28.0-37.0); MCV 88.8 fL (80.0-100.0); RBC 4.51 mil/uL (4.50-6.00); WBC 7.7 thou/uL (4.0-11.0)
[2021-02-26 04:43] VITALS: BP 114/69
[2021-02-26 04:43] LABS: ALBUMIN 3.4 g/dL (3.4-5.0); CALCIUM 7.9 mg/dL (8.5-10.1); CK-MB MASS 0.8 ng/mL (<0.5-3.6); POTASSIUM 4.2 mmol/L (3.5-5.1); TOTAL BILIRUBIN 0.8 mg/dL (<0.1-1.0); TOTAL PROTEIN 6.3 g/dL (6.4-8.2)
[2021-02-26 08:00] VITALS: BP 118/73
[2021-02-26] MEDS ORDERED: NITROGLYCERIN0.4 MG SUBLING (09:19)
--- NOTE | 2021-02-26 10:47 | CARD ---
[address] [address] CARDIAC CATH REPORT Name: CYNTHIA PARTIDA Room: [address] IN .R.#: [id number] Admission: 02/25/21 Attend Phys: Alexander Montgomery MD, Discharge: Date of : 62 Report #: [id number] THIS REPORT FOR: cc: Abbie Pack MD, Jennifer MD Holkins,Alexander Freeman MD [facility] ~ APPROVED REPORT Study performed: 02/25/2021 09:43:11 Patient Details Patient Status: Out-Patient Room #: The patient is a 60 year-old male Event Personnel Alexander Montgomery Mud Tank Operator, Angeline Arellano RN Artificial Glass Eye Maker, Kizzy Arias RN Monitor, Alanna Billy RTR Scrub Procedures Performed Art Access - R femoral artery* Left Heart Cath w/or w/o Coronaries [id number] [facility] Atherectomy w/wo Plasty Sgl LAD [id number] ATHSINGLE Hemostasis w/ Angioseal Indication Unstable angina Risk Factors Family History, Hypercholesterolemia Previous Procedures/Diagnoses Previous PCI Procedure Narrative The patient was brought electively to the Cardiac Catheterization Laboratory and was prepped and draped in a sterile manner. The right femoral was infiltrated with 2% Lidocaine subcutaneous anesthesia. IV conscious sedation was used throughout procedure with appropriate monitoring and was performed in the presence of a registered nurse who was an independent trained observer other than the physician performing the procedure. A [place] 6 FR sheath was inserted into the right femoral artery. Coronary angiography was performed using coronary diagnostic catheters. The right coronary system was accessed and visualized with a Diagnostic JR4 [place] [address] CARDIAC CATH REPORT Name: CYNTHIA PARTIDA Room: [address]#: [id number] Admission: 02/25/21 Attend Phys: Alexander Montgomery MD, Discharge: Date of : 62 Report #: [id number] system was accessed and visualized with a JL 3.5 6frDiagnostic catheter. The left ventricle was accessed and visualized with a Diagnostic Pigtail catheter. Left ventricular/Aortic Valve gradient assessed via catheter pullback. Left ventriculogram was performed in PEDRAZA projection. Pre-demployment femoral angiogram was performed . Closure device was deployed with a 6 Fr Angioseal. The patient tolerated the procedure well and there were no complications associated with the procedure. There was no hematoma. Intraoperative Conscious Sedation Sedation start time: 10:04 Case end Time: 10:55 Fentanyl 50 mcg Versed 4 mg Fluoro Time: 12.4 minutes Dose: DAP 16043 cGycm2 1446 mGy Contrast Type and Amount: Omnipaque 320 ml Coronary Angiography The patient's coronary anatomy is right dominant. Diagnostic Cath Left Main 0% narrowing LAD 30% proximal narrowing with 80% mid LAD in-stent restenosis Circumflex 40% narrowing of the midportion of the nondominant circumflex within a previously deployed stent Right Coronary Large dominant vessel with 0% narrowing Left Ventriculography The left ventricle is normal in size with normal contractility. The left ventricular ejection fraction is estimated to be 60%. Left ventricular wall motion abnormalities are not present. There is no mitral insufficiency. Hemodynamics The aortic pressure is 114/52 mmHg with a mean of 89 mmHg. The left ventricular pressure is 107/3 mmHg with a mean of mmHg. The left ventricular end diastolic pressure is 13 mmHg. There was no gradient across the aortic valve upon pullback. PCI Technique Lesion Anticoagulation was achieved with Angiomax. Patient was preloaded with Brillinta. Percutaneous coronary intervention was performed on the mid left anterior descending artery [place] [address] CARDIAC CATH REPORT Name: CYNTHIA PARTIDA Room: [address] IN [facility]#: [id number] Admission: 02/25/21 Attend Phys: Alexander Montgomery MD, Discharge: Date of : 62 Report #: [id number] prior to intervention was 80% with MISSAEL 3 flow. A 6FR XB LAD 3.0 100CM Guide Catheter was used to engage the ostium. A IG: ProwaterFlex 180CM Interventional Guidewire was used to cross the lesion. BALLOON DILATION A Balloon catheter AngioSculpt PTCA 2.0X10mm was inserted and inflated up to 10.00atm for 18seconds. Additional Inflation: 12.00atm for 14seconds. Additional Inflation: 14.00atm for 17seconds. STENT DEPLOYMENT A drug-eluting stent Tuan RX Stent 2.84A61fr was inserted and inflated up to 12atm for 15seconds. Final angiography reveals 0 % stenosis with MISSAEL 3 flow. BALLOON DILATION A Balloon catheter was inserted and inflated up to 14.00atm for 14seconds. Additional Inflation: 16.00atm for 11seconds. STENT DEPLOYMENT A drug-eluting stent Tuan RX Stent 2.26W22yw was inserted and inflated up to 10.00atm for 9seconds. Additional Inflation: 12.00atm for 10seconds. Conclusion 1. Significant coronary artery disease characterized by the following: A 30% proximal with 80% mid LAD in-stent restenosis B 40% narrowing in the midportion of the nondominant circumflex within a previously deployed stent C normal left main and dominant right coronary artery 2. Normal left ventricular cavitary size and systolic function, estimated ejection fraction being 60% 3. Normal left-sided hemodynamic study 4. Successful PCI with angioplasty atherotomy/atherectomy and deployment of a drug-eluting stent at the site of 80% mid LAD in-stent restenosis with 0% residual narrowing and MISSAEL-3 [place] [address] CARDIAC CATH REPORT Name: CYNTHIA PARTIDA Room: [address]#: [id number] Admission: 02/25/21 Attend Phys: Alexander Montgomery MD, Discharge: Date of : 62 Report #: [id number] Recommendations Cardiac Risk Reduction Program Aggressive Medical Therapy Medications Administered Aspirin (any) Ticagrelor Diagnostic Cath Approved by: Alexander Montgomery MD Date/Time: 02/26/2021 10:45:21 <ELECTRONICALLY SIGNED> By: Alexander Montgomery MD, FAC 02/26/21 1047 1047 1047Alexander Montgomery MD, FAC /INF
--- NOTE | 2021-02-26 11:05 | D ---
[address] [address] DISCHARGE SUMMARY Name: CYNTHIA PARTIDA Room: [address] IN M.R.#: [id number] Admission: 02/25/21 Attend Phys: Alexander Montgomery MD, Discharge: Date of : 62 Report #: [id number] THIS REPORT FOR: cc: Abbie Pack MD, Jennifer MD Holkins,Alexander Freeman MD [facility] ~ DATE OF DISCHARGE: 02/26/2021 FINAL DISCHARGE DIAGNOSES: 1. Unstable angina. 2. Coronary artery disease. 3. Status post percutaneous coronary intervention to the mid left anterior descending on 02/25/2021. 4. Hyperlipidemia. PROCEDURES: On 02/25/2021 -- left heart catheterization, left ventriculography, selective coronary arteriography, and percutaneous coronary intervention with atherotomy/atherectomy and stenting of the mid LAD. HOSPITAL COURSE: The patient is a very pleasant and active 60-year-old male with a history of coronary artery disease, approximately 1 year status post stenting of the circumflex and LAD, 1 side in the circumflex and 2 in the LAD. Recently, he has noted recrudescence of chest pain with marked exertion such as running through an airport or on the treadmill test in our office. Given the increasing frequency of episodes and the severity, I recommended repeat cardiac catheterization. This was undertaken on 02/25/2021. It revealed 80% in-stent restenosis of the more distal LAD stent with a widely patent proximal LAD stent and a 40% in-stent narrowing of the circumflex stent. I proceeded with PCI performing atherotomy/atherectomy and stenting of the mid LAD with 0% residual narrowing and MISSAEL 3 flow of the distal vessel. The patient did well post-procedurally and there was good hemostasis at the right femoral site of catheterization. Laboratory on 02/26 revealed sodium 142, potassium 4.2, BUN 14, creatinine 1.0, glucose 97. Hemoglobin 14.1; white blood cell count 7700 with 183,000 platelets. Cholesterol 94, triglycerides 62, HDL 49, LDL 33 mg%. The patient ambulated in the hallways without difficulty. He was discharged home on the following medications: Aspirin enteric-coated 81 mg daily, atorvastatin 40 mg daily, omega-3 fatty acids or fish oil 1000 mg daily, omeprazole 20 mg daily, multivitamin with minerals 1 tablet daily, lactobacillus or probiotic 1 tablet daily, ticagrelor or Brilinta 90 mg b.i.d., bupropion 100 mg daily, and p.r.n. [place] [address] DISCHARGE SUMMARY Name: CYNTHIA PARTIDA Room: [address] IN .R.#: [id number] Admission: 02/25/21 Attend Phys: Alexander Montgomery MD, Discharge: Date of : 62 Report #: [id number] I will plan to see the patient in followup on 03/28/2021, at our [facility] office at 0845 hours. Therefore, the patient is discharged home in stable condition on the aforementioned medications with followup as described above. <ELECTRONICALLY SIGNED> By: Alexander Montgomery MD, [facility] 02/26/21 1105 0857 0923Jovitor Montgomery MD, FAC /nt
[2021-02-26 12:00] VITALS: BP 123/78
[2021-02-26 14:56] VITALS: BP 123/78
== END 2021-02-26 15:30 | disposition home or self-care (01) | DRG 247 ==
LOC: M.CL 08:07 → M.2W 11:08 → M.TBA-CV 11:08 → M.2W 12:07
PROVIDERS: ADMIT Internal Medicine; ATTEND Internal Medicine
PROC: 02C03ZZ Extirpation of Matter from Coronary Artery, One Artery, Percutaneous Approach (ICD-10-PCS; principal; 2021-02-25)
PROC: 4A023N7 Measurement of Cardiac Sampling and Pressure, Left Heart, Percutaneous Approach (ICD-10-PCS; principal; 2021-02-25)
PROC: B2151ZZ Fluoroscopy of Left Heart using Low Osmolar Contrast (ICD-10-PCS; principal; 2021-02-25)
PROC: 027034Z Dilation of Coronary Artery, One Artery with Drug-eluting Intraluminal Device, Percutaneous Approach (ICD-10-PCS; principal; 2021-02-25)
PROC: B2111ZZ Fluoroscopy of Multiple Coronary Arteries using Low Osmolar Contrast (ICD-10-PCS; principal; 2021-02-25)
DX: T82.855A Stenosis of coronary artery stent, initial encounter (principal); I25.110 Atherosclerotic heart disease of native coronary artery with unstable angina pectoris; Y83.8 Other surgical procedures as the cause of abnormal reaction of the patient, or of later complication, without mention of misadventure at the time of the procedure; Z20.822 Contact with and (suspected) exposure to COVID-19; Z88.8 Allergy status to other drugs, medicaments and biological substances; Y92.89 Other specified places as the place of occurrence of the external cause